=== PATIENT | female | born 1965 | race Asian ===

== ENCOUNTER → 2024-04-24 19:05 | Outpatient (REF) | payer OTHER, SELFPAY | LOC: WDC 19:05 | PROVIDERS: ATTENDING PHYSICIAN Physician Assistant | DX: Z12.31 Encounter for screening mammogram for malignant neoplasm of breast (principal) | CPT/HCPCS: 77063; 77067 ==

== ENCOUNTER 2024-11-13 20:30 | Emergency (ER) | payer OTHER, SELFPAY ==
[2024-11-13 20:39] VITALS: BP 116/70
[2024-11-13 21:01] LABS: Hematocrit 37.3 % (37.0-47.0); Hemoglobin 12.4 g/dL (12.0-16.0); Mean Corp Hgb Conc. 33.2 g/dL (33.0-37.0); Mean Corpuscular Volume 85.2 fL (81.0-99.0); Nucleated Red Blood Cells % 0 %; Platelet Count 279 10^3/uL (130-400); Red Cell Dist. Width 13.0 % (11.5-14.5)
[2024-11-13 21:23] LABS: ALT (SGPT) 22 U/L (0-35); AST (SGOT) 25 U/L (14-36); Albumin 4.7 g/dl (3.5-5.0); Alkaline Phosphatase 80 U/L (38-126); Blood Urea Nitrogen 16 mg/dl (7-17); Calcium 9.4 mg/dl (8.4-10.2); Carbon Dioxide 28 mmol/L (22-30); Chloride 103 mmol/L (98-107); Glucose 100 mg/dl (70-99); Potassium 4.2 mmol/L (3.5-5.1); Sodium 138 mmol/L (135-145); Total Protein 7.9 g/dl (6.3-8.2); eGFR > 60.00
[2024-11-13 21:46] VITALS: BP 128/50
[2024-11-13] MEDS: MORPHINE SULFATE 4 MG IV (23:39)
[2024-11-13] MEDS: ZOFRAN 4 MG IV (23:39)
[2024-11-13 23:40] VITALS: BP 110/43
[2024-11-13 23:42] VITALS: BP 114/52
[2024-11-13 23:47] VITALS: BP 110/48
[2024-11-14] VITALS: BP 107/44
[2024-11-14 00:20] VITALS: BP 105/50
--- NOTE | 2024-11-14 00:33 | ED.GENMED ---
History of Present Illness
General
Chief Complaint: Dental Problem
Source: patient
Exam Limitations: none
Time Seen by Provider: 11/13/24 22:07
Nursing documentation reviewed up to this point in time: agreed with
History of Present Illness
History of Present Illness:
Note:
CHIEF COMPLAINT(S)
Dental pain.
HISTORY OF PRESENT ILLNESS
The patient, a 59 yo female, presented with dental pain and right-sided facial swelling. The patient denied experiencing fever, chills, nausea, vomiting, or discharge from the mouth. She reported taking Ampicillin at home prior to the encounter.
She received the ampicillin from a coworker. The patient has a dentist and had recent dental cleaning involving the top teeth.
EXTERNAL RECORDS REVIEWED
Laboratory results reviewed show a slight elevation in white blood cell count but no other significant abnormalities. The chemistry panel was not fully completed at the time of review.
PHYSICAL EXAM
General: Alert, no acute distress.
Skin: Warm, dry.
Head: Normocephalic, atraumatic.
Neck: Supple, trachea midline.
Eye, Ear, Nose, Mouth, and Throat: Oral mucosa moist. Partial trismus. Uvula is deviated to the left. Right sided tonsillar swelling
Cardiovascular: Normal peripheral perfusion, No edema.
Respiratory: Respirations are non-labored.
Gastrointestinal: Abdomen nondistended.
Back: Normal range of motion, Normal alignment.
Musculoskeletal: Normal range of motion, normal strength.
Neurological: Alert and oriented to person, place, time, and situation, No focal neurological deficit observed.
Psychiatric: Cooperative, appropriate mood & affect.
PLAN
A CAT scan has been ordered to evaluate for a potential peritonsillar abscess.
DIFFERENTIAL DIAGNOSIS
The Differential Diagnosis includes, in no particular order and is not limited to:
1. Peritonsillar abscess
2. Dental abscess
3. Gingivitis
4. Sinusitis
5. Periodontal disease
6. Pharyngitis
7. Tonsillitis
8. Odontogenic infection
9. Sialadenitis
10. Temporomandibular joint disorder
Disposition:
SUMMARY OF ENCOUNTER
The patient, a 59-year-old female, presented with right-sided facial swelling without fever, chills, or discharge from the mouth. A CT scan was performed, showing mild right-sided facial swelling. There was no clear evidence of an organized fluid
collection, but findings were concerning for a soft tissue infection. The patients airway was confirmed to be patent, with no enlarged or chronic lymph nodes observed. Both cervical carotid and vertebral arteries were patent, as were the internal
jugular veins. There were no suspicious lytic or sclerotic lesions within the skull base or cervical spine.
DISPOSITION
The patient was discharged with a follow-up with ENT.
ASSESSMENT
Mild right-sided facial swelling concerning for a soft tissue infection.
EMERGENCY TREATMENTS ADMINISTERED
The patient received clindamycin.
PLAN
The patient should follow up with an ENT specialist.
INDEPENDENT REVIEW OF LABS AND INTERPRETATION OF TESTS
My independent interpretation of the CT scan indicates mild right-sided facial swelling without organized fluid collection, a patent airway, patent cervical carotid and vertebral arteries, patent internal jugular veins, and no suspicious lesions in
the skull base or cervical spine.
FOLLOW-UP INSTRUCTIONS
The patient is instructed to follow up with ENT.
MEDICATION RECONCILIATION
Administered Clindamycin.
MEDICAL DECISION MAKING
-Complexity of Data Reviewed: Chronic conditions affecting care. Differential Diagnosis includes:
1. Peritonsillar abscess
2. Dental abscess
3. Gingivitis
4. Sinusitis
5. Periodontal disease
6. Pharyngitis
7. Tonsillitis
8. Odontogenic infection
9. Sialadenitis
10. Temporomandibular joint disorder
-Data:
Category [address] scan was independently reviewed.
-Risk:
Consideration of Admission/Observation: Escalation of care including admission/observation was considered given the complexity and risk of the patients presenting complaint, exam findings, and/or their underlying comorbidities. However, ultimately I
feel the patient is safe for outpatient management with close follow-up. Reasoning: Work-up reassuring, does not reveal any acute life/organ-threatening processes, patients symptoms well controlled upon reevaluation, reexamination is reassuring,
vitals are stable, patient agreeable with discharge, reliable for follow-up.
DIAGNOSIS
Right-sided facial swelling, unspecified (R22.0).
Past History
Past History
ED Past Medical History: Hypercholesterolemia
ED Past Surgical History: Gynecological
Social History
Tobacco: Non-smoker
Living: with family
Employment: Employed
Phy Exam
General Physical Exam
General Presentation: well appearing
General age: appears stated age
General Skin: warm and dry
General Habitus: normal
Musculoskeletal Exam
Musculoskeletal Exam: full ROM
Skin Exam
Skin Exam: normal color and warm/dry
Psychiatric Exam
Psychiatric Exam: normal mood/affect
Course
Orders/Labs/Results
Orders:
Orders
11/13/24 20:49
Complete Blood Count/With Diff Urgent
Comprehensive Metabolic Panel Urgent
11/13/24 22:39
CT Neck With Iv Contrast Urgent
Comment:
Reason For Exam: right sided facial swelling
11/13/24 23:16
Morphine Sulfate 4 mg IV NOW STA
Ondansetron Injectable [Zofran] 4 mg IV NOW STA
11/14/24 00:30
Clindamycin HCl [Cleocin] 450 mg PO NOW STA
Abnormal Lab Results
11/13/24
20:49
WBC 11.9 H 10^3/uL
(4.8-10.8)
Absolute Neuts (auto) 8.9 H 10^3/uL
(1.4-6.5)
Absolute Monos (auto) 1.0 H 10^3/uL
(0.1-0.6)
Lymphocytes % 15.9 L %
(20.5-51.1)
Glucose 100 H mg/dl
(70-99)
11/13/24 20:49
11/13/24 20:49
Vital Signs
Initial and Last Documented VS:
Initial Vital Signs
Temp Pulse Resp BP Pulse Ox
99.1 F 80 18 116/70 100
11/13/24 20:39 11/13/24 20:39 11/13/24 20:39 11/13/24 20:39 11/13/24 20:39
Last Documented Vital Signs
Temp Pulse Resp BP Pulse Ox
99.1 F 80 18 107/44 93
11/13/24 21:52 11/13/24 20:39 11/13/24 20:39 11/14/24 00:00 11/14/24 00:00
*Pulse Oximetry
SaO2: 93
Oxygen Mode of Delivery: Room air
ED Attending Note
-
Portions of this chart may have been created with voice recognition software.� Occasional wrong word or��sound alike� substitutions may have occurred due to the inherent limitations of voice recognition software.
Discharge Plan
Departure
Patient Disposition: Home (Routine Discharge)
Date of Disposition: 11/14/24
Time of Disposition: 00:36
Patient with high blood pressure during this ER visit?: Yes
Condition: Good
Discharge Problem:
Facial swelling
Instructions: Dental pain - ED (DC), BLOOD PRESSURE
Prescriptions:
New
clindamycin HCl [Cleocin HCl] 150 mg capsule
450 mg PO TID 10 Days Qty: 90 0RF
No Action
atorvastatin 10 MG tablet
10 mg PO QPM
ginkgo biloba 40 MG capsule
40 mg PO QPM
Referrals:
Tiffani Dalton PA-C [Family Provider, Internal Medicine]
Activity Restrictions/Additional Instructions:
Your prescriptions were sent electronically to the pharmacy that you specified.
Thank You for choosing [facility].
It was a pleasure meeting you and taking part in your care. We hope for your continued healing and wellness.
Please read discharge instructions in their entirety. However, they are for general education and may not describe your exact diagnosis at discharge. Information on your ER visit and medical conditions were discussed with you along with appropriate
follow up information...
If indicated, please take your medications as instructed and indicated on discharge paperwork.
Please schedule a follow up appointment as directed. Call to schedule an appointment
Please return to the emergency department with ANY change in, persisting, or worsening of symptoms. If any of your symptoms do not improve, or persist, or become more severe within 6-12 hours, please return to the emergency department for further
care.
Please return to the emergency department if you develop a headache, neck pain/stiffness, fever greater than 100.4F, chest pain, shortness of breath, persistent nausea, vomiting, slurred speech, difficulty walking, numbness/tingling, weakness, signs
of infection or any other symptoms that are worrisome to you.
If you have any questions or concerns please do not hesitate to call the Hospital at or E-mail me directly at [email or web address]
Interventions
Interventions:
*Risk Screen - Suicide Last Done: 11/13/24 20:43
*General Assessment Last Done: 11/13/24 21:37
*Neglect/Abuse Screening Last Done: 11/13/24 20:43
*ED- Fall Risk Assessment Last Done: 11/13/24 21:37
*ED COVID-19 Vaccine History Last Done: 11/13/24 21:37
Discharge Date and Time
Print Language: Ma[place]
[2024-11-14 00:40] VITALS: BP 114/51
[2024-11-14] MEDS: CLEOCIN 450 MG PO (00:41)
== END 2024-11-14 00:56 | disposition home or self-care (01) ==
LOC: EMR 20:30
PROVIDERS: Emergency Medicine; EMERGENCY PHYSICIAN Student in an Organized Health Care Education/Training Program; FAMILY PHYSICIAN Physician Assistant
DX: R22.0 Localized swelling, mass and lump, head (principal); E78.00 Pure hypercholesterolemia, unspecified; K08.89 Other specified disorders of teeth and supporting structures
CPT/HCPCS: 96374; 96375; 99284; 70491; 80053; 85025; Q9967